=== PATIENT | male | born 1970 | race Caucasian/White ===

== ENCOUNTER 2017-11-30 17:52 | Emergency (ER) | payer OTHER ==
[2017-11-30 18:00] VITALS: BP 107/59; PULSE 102; TEMP 97.3; BMI 23.4
--- NOTE | 2017-11-30 18:13 | PDOC ---
History of Present Illness - General Chief Complaint: Substance Abuse Stated Complaint: SUBSTANCE ABUSE Time Seen by Provider: 11/30/17 18:04 History Source: Patient Exam Limitations: No Limitations - History of Present Illness Initial Comments: 11/30/17 18:08 Patient is a 47M with history of wrist pain and leg pain here today via EMS after his found him difficult to get arouse at home. Patient states that he took 1 percocet and xanax. He says his is mad at him. He denies chest pain, shortness of breath, headache, nausea, vomiting, fevers and chills. Past History - Past Medical History Allergies/Adverse Reactions: Allergies Allergy/AdvReac Type Severity Reaction Status Date / Time No Known Drug Allergies Allergy Verified 11/30/17 18:00 Home Medications: Ambulatory Orders Unobtainable [Unobtainable] 11/30/17 Anemia: No Asthma: Yes Cancer: No Cardiac Disorders: No CVA: No COPD: No CHF: No Dementia: No Diabetes: No GI Disorders: Yes (GERD) Disorders: No HTN: No Hypercholesterolemia: No Liver Disease: No Seizures: No Thyroid Disease: No - Suicide/Smoking/Psychosocial Hx Smoking History: Current every day smoker Have you smoked in the past 12 months: Yes Number of Cigarettes Smoked Daily: 40 Information on smoking cessation initiated: No 'Breaking Loose' booklet given: 03/24/13 Hx Alcohol Use: No Drug/Substance Use Hx: No Substance Use Type: None, Prescribed Review of Systems - Review of Systems Comments:: 11/30/17 18:12 GENERAL/CONSTITUTIONAL: No fever or chills. No weakness. CARDIOVASCULAR: No chest pain or shortness of breath RESPIRATORY: No cough, wheezing, or hemoptysis. GASTROINTESTINAL: No nausea, vomiting, diarrhea or constipation. GENITOURINARY: No dysuria, frequency, or change in urination. SKIN: No rash NEUROLOGIC: No headache, vertigo, loss of consciousness, or change in strength/ sensation. ENDOCRINE: No increased thirst. No abnormal weight change HEMATOLOGIC/LYMPHATIC: No anemia, easy bleeding, or history of blood clots. ALLERGIC/IMMUNOLOGIC: No hives or skin allergy. *Physical Exam - Vital Signs Last Vital Signs Temp Pulse Resp BP Pulse Ox 97.3 F L 102 H 18 107/59 100 11/30/17 17:57 11/30/17 17:57 11/30/17 17:57 11/30/17 17:57 11/30/17 17:57 - Physical Exam Comments: 11/30/17 18:12 GENERAL: Awake, alert, and fully oriented, in no acute distress HEAD: No signs of trauma, normocephalic, small healing scratches on face EYES: PERRLA, EOMI, sclera anicteric, conjunctiva clear ENT: Auricles normal inspection, hearing grossly normal, nares patent, oropharynx clear without exudates. Moist mucosa NECK: Normal ROM, supple, no lymphadenopathy, JVD, or masses LUNGS: No distress, speaks full sentences, clear to auscultation bilaterally HEART: Regular rate and rhythm, normal S1 and S2, no murmurs, rubs or gallops, peripheral pulses normal and equal bilaterally. EXTREMITIES: Normal inspection, Normal range of motion, no edema. No clubbing or cyanosis. NEUROLOGICAL: Cranial nerves II through XII grossly intact. Normal speech, normal gait, no focal sensorimotor deficits SKIN: Warm, Dry, normal turgor, no rashes or lesions noted. Medical Decision Making - Medical Decision Making 11/30/17 18:13 Patient is a 47M who was brought in by EMS for difficultly to arouse. Patient received no narcan in the field. Is alert, ambulatory around the ED. Vital signs stable and normal. Will discharge. *DC/Admit/Observation/Transfer Diagnosis at time of Disposition: Excessive sleepiness - Discharge Dispostion Disposition: HOME Condition at time of disposition: Good Admit: No - Referrals Referrals: Mohit Sherman MD [Primary Care Provider] - - Patient Instructions Additional Instructions: Please avoid mixing your xanax and percocet, as this may cause you to be difficult to arouse and may stop you from breathing. Please return if you have any new, worsening or concerning symptoms. - Post Discharge Activity
--- NOTE | 2017-11-30 18:58 | PDOC ---
Attending Attestation - Resident Resident Name: FlexShailesh cade - ED Attending Attestation I have performed the following: I have examined & evaluated the patient, The case was reviewed & discussed with the resident, I agree w/resident's findings & plan, Exceptions are as noted - HPI HPI: 11/30/17 18:55 47 yo M presenting to the ER with no complaints Apparently, he was sleeping at his home He admits to taking half of a xanax tablet He went to sleep His became concerned because she had difficulty waking him She called EMS Upon their arrival, pt was awake and alert Pt has no complaints at this time He denies trauma 11/30/17 19:07 - Physicial Exam PE: 11/30/17 19:08 GENERAL: The patient is in no acute distress. HEAD: Normal with no signs of trauma. EYES: PERRLA, EOMI, sclera anicteric, conjunctiva clear. ENT: Moist mucous membranes. NECK: Normal range of motion, supple LUNGS: Breath sounds equal, clear to auscultation bilaterally. HEART:Regular rate and rhythm, normal S1 and S2 without murmur, rub or gallop. ABDOMEN: Soft, nontender, normoactive bowel sounds. EXTREMITIES: Normal range of motion, no edema. NEUROLOGICAL: Cranial nerves II through XII grossly intact. Normal speech. No focal neurological deficits. Speaking with clear and complete sentences SKIN: multiple abrasions noted on the face, no cellulitis - Medical Decision Making 11/30/17 19:09 47 yo M sent to the ER because his due to increased sleepiness No head trauma No complaints Will discharge to home Clinical impression: xanax use, initial presentation sleepiness, initial presentation
== END 2017-11-30 18:20 | disposition home or self-care (01) ==
LOC: JER 17:52
DX: F13.982 Sedative, hypnotic or anxiolytic use, unspecified with sedative, hypnotic or anxiolytic-induced sleep disorder (principal)
CPT/HCPCS: 99282-25

== ENCOUNTER 2020-05-31 15:34 | Inpatient (IN) | payer SELFPAY ==
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
[2020-05-31] MEDS ORDERED: MAG HYDROX/AL HYDROX/SIMETH 30 ML UNIT-DOSE CUP PO PRN (16:51)
[2020-05-31] MEDS ORDERED: MAGNESIUM CITRATE 300 ML BOTTLE PO PRN (16:51)
[2020-05-31] MEDS ORDERED: IBUPROFEN 400 MG TABLET (FP) PO PRN (16:51)
[2020-05-31] MEDS ORDERED: ACETAMINOPHEN 325 MG TABLET (FP) PO PRN ×2 (16:51)
[2020-05-31] MEDS ORDERED: MAGNESIUM HYDROX 2400MG/30ML ORAL SUSPENSION 30 ML CUP PO PRN (16:51)
[2020-05-31] MEDS ORDERED: MENTHOL/PHENOL 1 EACH UD MM PRN (16:51)
[2020-05-31] MEDS ORDERED: BISMUTH SUBSALICYLATE 524 MG/30 ML UD PO PRN (16:51)
[2020-05-31] MEDS ORDERED: cloNIDine HCL 0.1 MG TABLET PO PRN (16:52)
[2020-05-31 17:23] VITALS: BMI 29.4
[2020-05-31] MEDS ORDERED: METHADONE HCL 10 MG TABLET (FOR DETOX USE ONLY) PO ONE (22:00)
[2020-05-31] MEDS: BACITRACIN 0.9 GM PACKET TP SCH (22:15)
[2020-05-31] MEDS: METHOCARBAMOL 500 MG TABLET PO PRN (22:15)
[2020-05-31] MEDS: MELATONIN 5 MG TABLETS PO PRN (22:15)
[2020-05-31] MEDS: THIAMINE HCL 100 MG TABLET (FP) PO SCH (22:15)
[2020-06-01] MEDS ORDERED: ALBUTEROL SO4 HFA INHALER IH ONE ×2 (06:03→17:56)
[2020-06-01] MEDS ORDERED: METHADONE HCL 5 MG TABLET (FOR DETOX USE ONLY) ONE (09:23)
[2020-06-01] MEDS ORDERED: METHADONE HCL 10 MG TABLET (FOR DETOX USE ONLY) ONE (09:23)
[2020-06-01] MEDS: BACITRACIN 0.9 GM PACKET TP SCH ×2 (09:51→23:10)
[2020-06-01] MEDS: METHOCARBAMOL 500 MG TABLET PO PRN ×2 (09:51→18:06)
[2020-06-01] MEDS: PRENATAL VITAMINS W/ FOLIC ACID TABLET (FP) PO SCH (09:51)
[2020-06-01] MEDS ORDERED: METHADONE (DETOX) 20 MG, METHADONE (DETOX) 5 MG PO ONE (10:00)
[2020-06-01] MEDS ORDERED: PNEUMOC 13-VAL CONJ-DIP CRM/PF 0.5 ML DISP.SYRIN IM ONE (12:00)
[2020-06-01] MEDS ORDERED: PNEUMOCOCCAL 23 VACCINE 0.5 ML VIAL IM ONE (12:00)
--- NOTE | 2020-06-01 12:17 | PN ---
BHS COWS - Scale Resting Pulse: 0= [place] 80 or Below Sweatin= No chills or Flushing Restless Observation: 0= Sits Still Pupil Size: 1= Pupils >than Normal Bone or Joint Aches: 2= Severe Diffuse Aches Runny Nose/ Eye Tearin= None GI Upset > 30mins: 1= Stomach Cramp Tremor Observation of Outstretched Hands: 0= None Yawning Observation: 4= Several Times/Minute Anxiety or Irritability: 2=Irritable/Anxious Goose Flesh Skin: 0=Smooth Skin COWS Score: 10 BHS Progress Note (SOAP) Subjective: 49 years old male was admitted on 05/31/20 for opiate withdrawal sx management treating with methadone detox regiment mr beaulieu states that he has preethi on his scalp for 2-3 months scalp intact no swell no redness none tenderness Objective: 06/01/20 12:20 Vital Signs - 24 hr 05/31/20 05/31/20 05/31/20 17:12 17:56 17:57 Temperature 98.1 F 98.1 F Pulse Rate 65 65 Respiratory 18 18 Rate Blood Pressure 107/67 107/67 O2 Sat by Pulse 97 97 Oximetry (%) 05/31/20 06/01/20 06/01/20 18:30 05:51 08:58 Temperature 96.9 F L 97.1 F L 99.0 F Pulse Rate 62 77 66 Respiratory 18 20 18 Rate Blood Pressure 119/70 107/64 109/69 O2 Sat by Pulse 98 99 Oximetry (%) Laboratory Tests 05/31/20 18:04 COVID-19 (YANA) Not detected 06/01/20 12:21 lab pending Assessment: 06/01/20 12:21 opiate withdrawal Plan: methadone regiment
[2020-06-01 12:23] LABS: HEMATOCRIT 41.9 % (35.4-49); HEMOGLOBIN 13.9 GM/dL (11.7-16.9); MCH 31.5 pg (25.7-33.7); MCHC 33.3 g/dl (32.0-35.9); MEAN CELL VOLUME 94.5 fl (80-96); MEAN PLT VOLUME 7.6 fl (7.5-11.1); PLATELET COUNT 310 K/MM3 (134-434); RBC 4.43 M/mm3 (4.00-5.60); RDW 13.9 % (11.9-15.9); WHITE BLOOD COUNT 7.8 K/mm3 (4.0-10.0)
[2020-06-01 12:27] LABS: ALBUMIN 3.8 g/dl (3.4-5.0); BILIRUBIN,TOTAL 0.8 mg/dL (0.2-1); BLOOD UREA NITROGEN 20.2 mg/dL (7-18); CALCIUM 9.3 mg/dL (8.5-10.1); CREATININE 0.8 mg/dL (0.55-1.3); POTASSIUM 3.9 mmol/L (3.5-5.1); TOT PROT 7.3 g/dl (6.4-8.2)
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
[2020-06-01] MEDS ORDERED: hydrOXYzine PAMOATE 25 MG CAPSULE (FP) PO ONE (19:10)
--- NOTE | 2020-06-01 19:11 | PN ---
S Progress Note Note: elevated QTc 455 ms 2018 Vistaril one- time dose added
[2020-06-01] MEDS: ALBUTEROL SO4 HFA INHALER IH PRN (19:13)
[2020-06-01] MEDS: MELATONIN 5 MG TABLETS PO PRN (23:09)
[2020-06-01] MEDS: THIAMINE HCL 100 MG TABLET (FP) PO SCH (23:09)
[2020-06-02] MEDS: METHOCARBAMOL 500 MG TABLET PO PRN ×2 (09:30→17:46)
[2020-06-02] MEDS: PRENATAL VITAMINS W/ FOLIC ACID TABLET (FP) PO SCH (09:30)
[2020-06-02] MEDS: BACITRACIN 0.9 GM PACKET TP SCH ×2 (09:31→22:26)
[2020-06-02] MEDS ORDERED: METHADONE HCL 10 MG TABLET (FOR DETOX USE ONLY) PO ONE (10:00)
--- NOTE | 2020-06-02 11:33 | PN ---
BHS COWS - Scale Resting Pulse: 0= [place] 80 or Below Sweatin= Chills/Flushing Restless Observation: 0= Sits Still Pupil Size: 1= Pupils >than Normal Bone or Joint Aches: 1= Mild Discomfort Runny Nose/ Eye Tearin= None GI Upset > 30mins: 2= Nausea/Diarrhea Tremor Observation of Outstretched Hands: 1= Tremor [place], Not Seen Yawning Observation: 0= None Anxiety or Irritability: 2=Irritable/Anxious Goose Flesh Skin: 0=Smooth Skin COWS Score: 8 BHS Progress Note (SOAP) Subjective: 49 years old male was admitted on 05/31/20 for opiate withdrawal sx management treating with methadone detox regiment left lateral periatal preethi remained intact encourage stable removal for possible staple removed Objective: 06/02/20 11:32 Vital Signs - 24 hr 06/01/20 06/01/20 06/01/20 12:45 16:39 19:14 Temperature 98.8 F 97.5 F L Pulse Rate 70 72 Respiratory 18 18 Rate Blood Pressure 115/79 108/72 O2 Sat by Pulse 98 96 Oximetry (%) 06/01/20 06/02/20 06/02/20 20:36 06:45 08:28 Temperature 98.4 F 97.1 F L 98.8 F Pulse Rate 79 59 L 70 Respiratory 18 18 18 Rate Blood Pressure 99/61 125/73 112/65 O2 Sat by Pulse 97 99 Oximetry (%) Laboratory Tests 05/31/20 06/01/20 06/01/20 18:04 08:30 08:30 WBC 7.8 RBC 4.43 Hgb 13.9 Hct 41.9 MCV 94.5 MCH 31.5 MCHC 33.3 RDW 13.9 Plt Count 310 D MPV 7.6 D Sodium Potassium Chloride Carbon Dioxide Anion Gap BUN Creatinine Est GFR (CKD-EPI)AfAm Est GFR (CKD-EPI)NonAf Random Glucose Calcium Total Bilirubin AST ALT Alkaline Phosphatase Total Protein Albumin Syphilis Serology Non-reactive COVID-19 (YANA) Not detected 06/01/20 08:30 WBC RBC Hgb Hct MCV MCH MCHC RDW Plt Count MPV Sodium 137 Potassium 3.9 Chloride 100 Carbon Dioxide 29 Anion Gap 8 BUN 20.2 H Creatinine 0.8 Est GFR (CKD-EPI)AfAm 122.43 Est GFR (CKD-EPI)NonAf 105.63 Random Glucose 97 Calcium 9.3 Total Bilirubin 0.8 AST 29 ALT 23 Alkaline Phosphatase 77 Total Protein 7.3 Albumin 3.8 Syphilis Serology COVID-19 (YNAA) lab noted Assessment: 06/02/20 11:32 opiate withdrawal Plan: methadone regiment
[2020-06-02] MEDS: MELATONIN 5 MG TABLETS PO PRN (22:27)
[2020-06-02] MEDS: THIAMINE HCL 100 MG TABLET (FP) PO SCH (22:27)
[2020-06-03] MEDS ORDERED: METHADONE (DETOX) 10 MG, METHADONE (DETOX) 5 MG PO ONE (10:00)
[2020-06-03] MEDS ORDERED: METHADONE HCL 10 MG TABLET (FOR DETOX USE ONLY) ONE (10:06)
[2020-06-03] MEDS ORDERED: METHADONE HCL 5 MG TABLET (FOR DETOX USE ONLY) ONE (10:07)
[2020-06-03] MEDS: METHOCARBAMOL 500 MG TABLET PO PRN (10:13)
[2020-06-03] MEDS: PRENATAL VITAMINS W/ FOLIC ACID TABLET (FP) PO SCH (10:13)
[2020-06-03] MEDS: BACITRACIN 0.9 GM PACKET TP SCH ×2 (10:13→22:39)
--- NOTE | 2020-06-03 10:52 | PN ---
BHS COWS - Scale Resting Pulse: 0= [place] 80 or Below Sweatin= Beads of Sweat on Face Restless Observation: 1= Difficult to Sit Still Pupil Size: 0= Normal to Room Light Bone or Joint Aches: 0= None Runny Nose/ Eye Tearin= None GI Upset > 30mins: 0= None Tremor Observation of Outstretched Hands: 0= None Yawning Observation: 1= 1-2x During Session Anxiety or Irritability: 2=Irritable/Anxious Goose Flesh Skin: 0=Smooth Skin COWS Score: 7 BHS Progress Note (SOAP) Subjective: c/o sweats, headache, and anxiety. Objective: 06/03/20 10:51 Vital Signs 06/03/20 06/03/20 07:00 09:11 Temperature 97.7 F 96.9 F L Pulse Rate 61 58 L Respiratory 18 18 Rate Blood Pressure 100/62 99/77 O2 Sat by Pulse 96 Oximetry (%) Laboratory Last Values WBC 7.8 K/mm3 (4.0-10.0) 06/01/20 08:30 RBC 4.43 M/mm3 (4.00-5.60) 06/01/20 08:30 Hgb 13.9 GM/dL (11.7-16.9) 06/01/20 08:30 Hct 41.9 % (35.4-49) 06/01/20 08:30 MCV 94.5 fl (80-96) 06/01/20 08:30 MCH 31.5 pg (25.7-33.7) 06/01/20 08:30 MCHC 33.3 g/dl (32.0-35.9) 06/01/20 08:30 RDW 13.9 % (11.9-15.9) 06/01/20 08:30 Plt Count 310 K/MM3 (134-434) D 06/01/20 08:30 MPV 7.6 fl (7.5-11.1) D 06/01/20 08:30 Sodium 137 mmol/L (136-145) 06/01/20 08:30 Potassium 3.9 mmol/L (3.5-5.1) 06/01/20 08:30 Chloride 100 mmol/L (98-107) 06/01/20 08:30 Carbon Dioxide 29 mmol/L (21-32) 06/01/20 08:30 Anion Gap 8 MMOL/L (8-16) 06/01/20 08:30 BUN 20.2 mg/dL (7-18) H 06/01/20 08:30 Creatinine 0.8 mg/dL (0.55-1.3) 06/01/20 08:30 Est GFR (CKD-EPI)AfAm 122.43 06/01/20 08:30 Est GFR (CKD-EPI)NonAf 105.63 06/01/20 08:30 Random Glucose 97 mg/dL (74-106) 06/01/20 08:30 Calcium 9.3 mg/dL (8.5-10.1) 06/01/20 08:30 Total Bilirubin 0.8 mg/dL (0.2-1) 06/01/20 08:30 AST 29 U/L (15-37) 06/01/20 08:30 ALT 23 U/L (13-61) 06/01/20 08:30 Alkaline Phosphatase 77 U/L (45-117) 06/01/20 08:30 Total Protein 7.3 g/dl (6.4-8.2) 06/01/20 08:30 Albumin 3.8 g/dl (3.4-5.0) 06/01/20 08:30 Syphilis Serology Non-reactive (NONREACTIVE) 06/01/20 08:30 COVID-19 (YANA) Not detected (Not Detected) 05/31/20 18:04 Labs noted. Assessment: 06/03/20 10:51 AOX3, in no acute respiratory distress. Full ROM, ambulating in the unit. Withdrawal symptoms. Plan: continue detox.
[2020-06-03] MEDS: MELATONIN 5 MG TABLETS PO PRN (22:40)
[2020-06-03] MEDS: THIAMINE HCL 100 MG TABLET (FP) PO SCH (22:40)
[2020-06-04] MEDS ORDERED: METHADONE HCL 10 MG TABLET (FOR DETOX USE ONLY) PO ONE (10:00)
[2020-06-04] MEDS: ALBUTEROL SO4 HFA INHALER IH PRN (10:01)
[2020-06-04] MEDS: PRENATAL VITAMINS W/ FOLIC ACID TABLET (FP) PO SCH (10:02)
[2020-06-04] MEDS: BACITRACIN 0.9 GM PACKET TP SCH ×2 (10:02→22:51)
--- NOTE | 2020-06-04 12:49 | PN ---
S COWS - Scale Resting Pulse: 0= [place] 80 or Below Sweatin= No chills or Flushing Restless Observation: 0= Sits Still Pupil Size: 0= Normal to Room Light Bone or Joint Aches: 1= Mild Discomfort Runny Nose/ Eye Tearin= None GI Upset > 30mins: 0= None Tremor Observation of Outstretched Hands: 0= None Yawning Observation: 0= None Anxiety or Irritability: 2=Irritable/Anxious Goose Flesh Skin: 0=Smooth Skin COWS Score: 3 BHS Progress Note (SOAP) Subjective: c/o mild withdrawal symptoms. Objective: 06/04/20 12:48 Vital Signs 06/04/20 09:58 Temperature 97.2 F L Pulse Rate 64 Respiratory 18 Rate Blood Pressure 106/73 Laboratory Last Values WBC 7.8 K/mm3 (4.0-10.0) 06/01/20 08:30 RBC 4.43 M/mm3 (4.00-5.60) 06/01/20 08:30 Hgb 13.9 GM/dL (11.7-16.9) 06/01/20 08:30 Hct 41.9 % (35.4-49) 06/01/20 08:30 MCV 94.5 fl (80-96) 06/01/20 08:30 MCH 31.5 pg (25.7-33.7) 06/01/20 08:30 MCHC 33.3 g/dl (32.0-35.9) 06/01/20 08:30 RDW 13.9 % (11.9-15.9) 06/01/20 08:30 Plt Count 310 K/MM3 (134-434) D 06/01/20 08:30 MPV 7.6 fl (7.5-11.1) D 06/01/20 08:30 Sodium 137 mmol/L (136-145) 06/01/20 08:30 Potassium 3.9 mmol/L (3.5-5.1) 06/01/20 08:30 Chloride 100 mmol/L (98-107) 06/01/20 08:30 Carbon Dioxide 29 mmol/L (21-32) 06/01/20 08:30 Anion Gap 8 MMOL/L (8-16) 06/01/20 08:30 BUN 20.2 mg/dL (7-18) H 06/01/20 08:30 Creatinine 0.8 mg/dL (0.55-1.3) 06/01/20 08:30 Est GFR (CKD-EPI)AfAm 122.43 06/01/20 08:30 Est GFR (CKD-EPI)NonAf 105.63 06/01/20 08:30 Random Glucose 97 mg/dL (74-106) 06/01/20 08:30 Calcium 9.3 mg/dL (8.5-10.1) 06/01/20 08:30 Total Bilirubin 0.8 mg/dL (0.2-1) 06/01/20 08:30 AST 29 U/L (15-37) 06/01/20 08:30 ALT 23 U/L (13-61) 06/01/20 08:30 Alkaline Phosphatase 77 U/L (45-117) 06/01/20 08:30 Total Protein 7.3 g/dl (6.4-8.2) 06/01/20 08:30 Albumin 3.8 g/dl (3.4-5.0) 06/01/20 08:30 Syphilis Serology Non-reactive (NONREACTIVE) 06/01/20 08:30 COVID-19 (YANA) Not detected (Not Detected) 05/31/20 18:04 Labs noted. Assessment: 06/04/20 12:48 AOX3, in no acute respiratory distress. Full ROM, ambulating in the unit. Mild Withdrawal symptoms. For d/c tomorrow. Plan: continue detox. D/C in AM.
[2020-06-04] MEDS: THIAMINE HCL 100 MG TABLET (FP) PO SCH (22:48)
[2020-06-04] MEDS: METHOCARBAMOL 500 MG TABLET PO PRN (22:50)
[2020-06-05] MEDS ORDERED: METHADONE HCL 5 MG TABLET (FOR DETOX USE ONLY) PO ONE ×2 (06:00→11:00)
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
[2020-06-05] MEDS: PRENATAL VITAMINS W/ FOLIC ACID TABLET (FP) PO SCH (10:32)
[2020-06-05] MEDS: BACITRACIN 0.9 GM PACKET TP SCH ×2 (10:33→22:20)
[2020-06-05] MEDS ORDERED: METHADONE HCL 10 MG TABLET (FOR DETOX USE ONLY) PO ONE (10:41)
[2020-06-05] MEDS: THIAMINE HCL 100 MG TABLET (FP) PO SCH (22:20)
[2020-06-05] MEDS: MELATONIN 5 MG TABLETS PO PRN (22:21)
[2020-06-05] MEDS: METHOCARBAMOL 500 MG TABLET PO PRN (22:21)
[2020-06-06] MEDS ORDERED: METHADONE HCL 5 MG TABLET PO ONE (05:00)
[2020-06-06] MEDS ORDERED: METHADONE HCL 5 MG TABLET (FOR DETOX USE ONLY) PO ONE (05:00)
[2020-06-06 07:01] VITALS: TEMP 98.4
[2020-06-06 09:10] VITALS: BP 99/69; PULSE 61
[2020-06-06] MEDS: PRENATAL VITAMINS W/ FOLIC ACID TABLET (FP) PO SCH (09:54)
[2020-06-06] MEDS: BACITRACIN 0.9 GM PACKET TP SCH (09:54)
--- NOTE | 2020-06-06 11:27 | DS ---
[facility] Detox Discharge Summary Admission Date: 05/31/20 Discharge Date: 06/06/20 - History Present History: Opioid Dependence Additional Comments: 49 years old male was admitted on 05/31/20 for opiate withdrawal sx management treated with methadone detox regiment seen by psychiatrist no medical intervention mr beaulieu has completed the methadone regiment and is tolerated well General Appearance: Yes: good hygiene, Mild Distress, no Anxious HEENTM: Yes: EOMI, Hearing grossly Normal, Normocephalic, Normal Voice, Orbits (left periorbital ecchymosis) Respiratory: Yes: Chest Non-Tender, Lungs Clear, Normal Breath Sounds, No Respiratory Distress, No Accessory Muscle Use Neck: Yes: No masses,lesions,Nodules, Trachea in good position Cardiology: Yes: Regular Rhythm, Regular Rate, S1, S2 Abdominal: Yes: Non Tender, Soft Back: Yes: Normal Inspection Musculoskeletal: Yes: Gait Steady Extremities: Yes: Normal Range of Motion, Non-Tender Neurological: Yes: Fully Oriented, Alert, Motor Strength 5/5, Depressed Affect Integumentary: Yes: Warm, Other (left parietal preethi) Pertinent Past History: time for discharge 34 minutes - Physical Exam Results Vital Signs: Vital Signs Temperature 98.4 F 06/06/20 08:38 Pulse Rate 61 06/06/20 08:38 Respiratory Rate 16 06/06/20 08:38 Blood Pressure 99/69 06/06/20 08:38 O2 Sat by Pulse Oximetry (%) 98 06/06/20 06:18 Pertinent Admission Physical Exam Findings: opiate withdrawal Laboratory Tests 05/31/20 06/01/20 06/01/20 18:04 08:30 08:30 WBC 7.8 RBC 4.43 Hgb 13.9 Hct 41.9 MCV 94.5 MCH 31.5 MCHC 33.3 RDW 13.9 Plt Count 310 D MPV 7.6 D Sodium Potassium Chloride Carbon Dioxide Anion Gap BUN Creatinine Est GFR (CKD-EPI)AfAm Est GFR (CKD-EPI)NonAf Random Glucose Calcium Total Bilirubin AST ALT Alkaline Phosphatase Total Protein Albumin Syphilis Serology Non-reactive COVID-19 (YANA) Not detected 06/01/20 08:30 WBC RBC Hgb Hct MCV MCH MCHC RDW Plt Count MPV Sodium 137 Potassium 3.9 Chloride 100 Carbon Dioxide 29 Anion Gap 8 BUN 20.2 H Creatinine 0.8 Est GFR (CKD-EPI)AfAm 122.43 Est GFR (CKD-EPI)NonAf 105.63 Random Glucose 97 Calcium 9.3 Total Bilirubin 0.8 AST 29 ALT 23 Alkaline Phosphatase 77 Total Protein 7.3 Albumin 3.8 Syphilis Serology COVID-19 (YANA) lab noted - Treatment Hospital Course: Detox Protocol Followed, Detoxed Safely, Responded well, Discharged Condition Good, Rehab Referral Accepted Patient has Accepted a Rehab Referral to: [facility] with transportation - Medication Discharge Medications: Ambulatory Orders Naloxone HCl [Narcan] 4 mg NS ASDIR PRN #1 spray 06/05/20 - Diagnosis (1) Nicotine dependence Status: Acute Qualifiers: Nicotine product type: cigarettes Substance use status: in withdrawal Qualified Code(s): F17.213 - Nicotine dependence, cigarettes, with withdrawal (2) Opioid dependence Status: Acute Qualifiers: Substance use status: uncomplicated Qualified Code(s): F11.20 - Opioid dependence, uncomplicated (3) Substance induced mood disorder Status: Suspected - AMA Did Patient Leave Against Medical Advice: No COWS (PN) - Opiate Withdrawal Resting Pulse: 0= CO 80 or Below Sweatin= No chills or Flushing Restless Observation: 0= Sits Still Pupil Size: 0= Normal to Room Light Bone or Joint Aches: 1= Mild Discomfort Runny Nose/ Eye Tearin= None GI Upset > 30mins: 0= None Tremor Observation of Outstretched Hands: 1= Tremor [place], Not Seen Yawning Observation: 0= None Anxiety or Irritability: 1=Feels Anxious/Irritable Goose Flesh Skin: 0=Smooth Skin COWS Score: 3
== END 2020-06-06 10:42 | disposition other institution (70) | DRG 773 ==
LOC: YASAS 15:34 → Y3N 17:22
PROVIDERS: ADMIT Allergy & Immunology; ATTEND Allergy & Immunology
PROC: HZ2ZZZZ Detoxification Services for Substance Abuse Treatment (ICD-10-PCS; principal; 2020-05-31)
DX: F11.23 Opioid dependence with withdrawal (principal); F14.10 Cocaine abuse, uncomplicated; F17.210 Nicotine dependence, cigarettes, uncomplicated; F19.24 Other psychoactive substance dependence with psychoactive substance-induced mood disorder; F41.9 Anxiety disorder, unspecified; G47.00 Insomnia, unspecified; J45.909 Unspecified asthma, uncomplicated; K21.9 Gastro-esophageal reflux disease without esophagitis; M12.9 Arthropathy, unspecified; N48.33 Priapism, drug-induced; T43.215A Adverse effect of selective serotonin and norepinephrine reuptake inhibitors, initial encounter; Y92.89 Other specified places as the place of occurrence of the external cause; Z87.81 Personal history of (healed) traumatic fracture
CPT/HCPCS: 36415; 80053; 85027; 86780; J0735; U0003

== ENCOUNTER 2021-04-19 17:43 | Emergency (ER) | payer OTHER ==
[2021-04-19 18:00] VITALS: BP 132/88; PULSE 104; TEMP 97.9; BMI 31.8
[2021-04-19] MEDS ORDERED: KETOROLAC TROMETHAMINE 30 MG/1 ML VIAL IM ONE (18:50)
[2021-04-19] MEDS ORDERED: KETOROLAC TROMETHAMINE 30 MG/1 ML VIAL ONE (18:53)
== END 2021-04-19 20:10 | disposition home or self-care (01) ==
LOC: JERFT 17:43
PROC: 3E0233Z Introduction of Anti-inflammatory into Muscle, Percutaneous Approach (ICD-10-PCS; principal; 2021-04-19)
DX: R22.43 Localized swelling, mass and lump, lower limb, bilateral (principal); R60.0 Localized edema
CPT/HCPCS: 99284-25